=== PATIENT | male | born 1955 | race Caucasian/White ===

== ENCOUNTER 2020-12-20 09:28 | Outpatient (RCR) | payer OTHER, SELFPAY | END 2020-12-20 23:59 | LOC: IMMUN 09:28 | PROVIDERS: PCP Internal Medicine; Referring Provider Family Medicine; Visit Provider Family Medicine | DX: Z23 Encounter for immunization (principal) | CPT/HCPCS: 0011A; 0012A ==

== ENCOUNTER 2024-01-27 17:59 | Emergency (ER) | payer MEDICARE, SELFPAY ==
[2024-01-27 18:00] VITALS: BP 145/76; PULSE 96; RESP 18; TEMP 36.8; O2SAT 98
--- NOTE | 2024-01-27 18:48 | EX.ED.DYSGE1 ---
HPI History of Present Illness Chief Complaint: Palpitations Informant: patient Onset/Context/Timing Onset: Weeks (1-2) Context: Gradual Onset Timing: Intermittent and Lasts (Approximately 1 hour) Quality: Fluttering Location: Chest Worsened by: In the morning when he wakes up Relieved by: Relaxing Narrative Narrative: Patient presents with palpitations that have been intermittent for the past 1 to 2 weeks. Patient states they come on gradually. Patient states that feels like there is a fluttering in his chest. Patient states it last for approximately an hour. Patient states it is worse in the morning. Patient states it is better when he is able to relax. Patient denies any shortness of breath. Patient denies any lightheadedness. Patient denies any pain in his chest. Patient denies any fevers or chills. PFSH PFSH Medical History (Updated 01/27/24 @ 21:[address] Deni Gardner DO) Anxiety Depression Hypercholesterolemia Surgical History (Updated 01/27/24 @ 19:[address] Deni Gardner DO) Hx of cataract surgery Hx of knee surgery Hx of shoulder surgery Social History (Updated 01/27/24 @ 19:[address] Deni Gardner DO) Smoking Status: Never smoker alcohol intake: current alcohol intake frequency: a few times a week substance use type: marijuana ROS ROS ED Constitutional Constitutional ED: Denies chills or fever(s) Eyes Eyes: Denies blurry vision or change in vision ENT ENT ED: Denies rhinorrhea or sore throat Cardiovascular Cardiovascular: Reports palpitations; Denies chest pain Respiratory/Chest Respiratory/Chest: Denies cough or dyspnea Gastrointestinal Gastrointestinal: Denies nausea or vomiting Genitourinary Genitourinary ED: Denies dysuria or hematuria Musculoskeletal Musculoskeletal: Reports back pain and neck pain Integumentary Denies abscess or rash Neurologic Neurologic: Denies headache(s) or weakness Allergic/Immunologic Allergic/Immunologic ED: Denies mouth swelling or urticaria EXAM Physical Exam Const Vital Signs: 01/27/24 18:00 01/27/24 18:24 01/27/24 20:00 Temperature 98.2 F Temperature Source Temporal Pulse Rate 96 80 Respiratory Rate 18 20 H Respiratory Effort Normal Non-Labored Blood Pressure 145/76 H 146/74 H Blood Pressure Mean 99 98 Pulse Ox 98 98 Oxygen Delivery Method Room Air Room Air Positive well nourished and well developed General Appearance ED: well developed and NAD HEENT Reports moist mucous membranes Neck supple and no JVD Chest Wall inspection of chest normal and palpation of chest normal Resp normal respiratory effort and clear to auscultation bilaterally Cardio regular rate Rhythm: abnormal rhythm ectopic beats GI non-tender and non-distended Palpation: soft Extremity normal to inspection General Extremety ED: Negative for edema or tenderness General Extremity: Negative for edema Neuro oriented x3, CN's II-XII intact bilaterally and no sensory deficits noted Sensorium / Orientation: alert Motor Exam: strength 5/5 throughout MDM MDM MDM Narrative Medical decision making narrative: Differential diagnosis included electrolyte abnormality, dehydration, cardiac dysrhythmia, cardiac ischemia, pneumonia, and anxiety. EKG will be obtained to assess for cardiac dysrhythmia and cardiac ischemia. Chest x-ray will be obtained to assess for pneumonia. CBC will be obtained to assess for leukocytosis and anemia. Basic metabolic profile will be obtained to assess for electrolyte abnormality and renal function. High-sensitivity troponin will be obtained to assess for cardiac ischemia. Lab Data Attestation: I reviewed the patient's lab results. Lab results narrative: CBC was reviewed and was within normal limits. Basic metabolic profile was reviewed and was within normal limits. High-sensitivity troponin was reviewed and was normal at 8. Labs: Laboratory Results - last 24 hr 01/27/24 18:58 WBC 6.8 RBC 4.58 L Hgb 14.0 Hct 40.4 MCV 88.2 MCH 30.6 MCHC 34.7 RDW Std Deviation 42.5 RDW Coeff of Larissa 13.2 Plt Count 181 MPV 9.6 Immature Gran % (Auto) 0.300 Neut % (Auto) 70.0 Lymph % (Auto) 18.6 L Garrett % (Auto) 8.2 Eos % (Auto) 1.9 Baso % (Auto) 1.0 Absolute Neuts (auto) 4.8 Absolute Lymphs (auto) 1.27 Nucleated RBC % 0 Sodium 141 Potassium 4.0 Chloride 112 H Carbon Dioxide 24.0 Anion Gap 5 BUN 15 Creatinine 0.90 Estim Creat Clear Calc 107.00 Est GFR (MDRD) Af Amer 109 Est GFR (MDRD) Non-Af 90 BUN/Creatinine Ratio 16.7 Glucose 98 Calcium 8.7 Troponin I High Sens 8 Radiography Chest X-Ray - ED: 2 View, Read by ED Physician, Read by Radiologist and No Acute Disease Diagnostic Testing: Clinical Impression(s) from Imaging Studies Chest X-Ray 01/27/24 19:05 IMPRESSION: No acute cardiopulmonary pathology Electronically Signed: Jacob Mcwilliams MD at 19:37 EDT , PA and lateral chest x-ray was obtained. There are 2 views. On my independent interpretation, lung vega are clear. There is normal cardiac silhouette. Bony thorax is normal. There is no acute process noted. Radiologist also interpreted the x-ray and agrees. EKG Initial EKG: Attestation: I personally reviewed and interpreted this EKG as follows: Interpretation: Sinus Rhythm (With frequent PVCs with a rate of 85) and No Acute Injury Pattern Comments: EKG was obtained. On my independent interpretation, it showed a normal sinus rhythm with frequent PVCs with a rate of 85. [place] interval, QRS interval, and QTc intervals were all normal. [place] was normal. There are no acute ST or T wave changes. Prior EKG tracings: not available for review Prior: No Prior Treatment and Re-Evaluation :: Patient was advised of his findings. Patient was instructed to drink plenty of fluids. Patient to follow-up with his primary care physician in 5 to 7 days. Patient understood and was agreeable with the plan. All questions were answered. Discharge Plan Triage Chief Complaint: Palpitations ED Provider: Deni Gardner Dx/Rx/DC Orders Clinical Impression: Palpitations, PVCs (premature ventricular contractions) Instructions: PVCs, ED Palpitations Primary Care Provider: Dimitri Simental Referrals: Dimitri Simental MD [Primary Care Provider] - 3-5 Days Disposition Disposition: Home, Self Care
--- NOTE | 2024-01-27 18:49 | EKG12_ITS ---
Test Reason : PALPATATIONS Blood Pressure : / mmHG Vent. Rate : 085 BPM Atrial Rate : 085 BPM P-R Int : 164 ms QRS Dur : 094 ms QT Int : 368 ms P-R-T Axes : 064 -04 047 degrees QTc Int : 437 ms Sinus rhythm with frequent Premature ventricular complexes Otherwise normal ECG Confirmed by TRACI HAWKINS, ABIGAIL ([id number]), book or script editor STUART SHEPPARD ([id number]) on 01/29/2024 9:08:35 AM Referred By: Confirmed By:ABIGAIL AVILES MD
--- NOTE | 2024-01-27 19:05 | RAD_ITS ---
STUDY: X-RAY CHEST REASON FOR EXAM: Male, 68 years old. Palpitations TECHNIQUE: PA and lateral COMPARISON: None. FINDINGS: The lungs are clear and expanded. There is no demonstrated pleural abnormality. Normal size heart. Normal mediastinum. Tiny left perihilar calcified nodes. Normal visualized pulmonary arteries. Normal visualized aortic arch and descending thoracic aorta. Normal visualized thoracic spine. Normal visualized ribs, clavicles, and shoulders. There is no demonstrated abnormality of the visualized soft tissue structures of the upper abdomen. RAD/Chest PA and Lateral IMPRESSION: No acute cardiopulmonary pathology Electronically Signed: Jacob Mcwilliams MD at 19:37 EDT Reading Location ID and State: [facility] [place] [facility] Tel , Service support ,
[2024-01-27 19:09] LABS: Absolute Lymphocyte Count 1.27 X10^3/uL (0.83-4.51); Absolute Neutrophil Count 4.8 X10^3/uL (2.0-7.7); Basophil# 0.07 X10^3/uL; Eosinophil# 0.13 X10^3/uL; Eosinophils% 1.9 % (0-5); Hematocrit 40.4 % (40-54); Lymphocyte # 1.27 X10^3/ul (0.83-4.51); Lymphocyte % 18.6 % (19-41); Mean Corp Hgb Conc 34.7 g/dL (32-36); Mean Corpuscular Hgb 30.6 pg (27.0-32.0); Mean Corpuscular Volume 88.2 fL (80-94); Mean Platelet Vol. 9.6 fl (6.2-12.0); Monocyte# 0.56 X10^3/uL; Monocyte% 8.2 % (0-10); NRBC Flagged by Analyzer 0 % (0-5); Neutrophil # 4.78 X10^3/uL (2.7-7.7); Platelet Count 181 K/mm3 (150-450); RBC Distribution Width CV 13.2 % (11.6-14.6); RBC Distribution Width SD 42.5 fl (35.1-43.9); Red Blood Count 4.58 M/mm3 (4.6-6.2); White Blood Count 6.8 K/mm3 (4.4-11.0)
[2024-01-27 19:17] VITALS: BMI 24.3
[2024-01-27] MEDS: 0.9% Normal Saline (1000mL) 1,000 ML 1000 ML IV (19:18)
[2024-01-27 19:27] LABS: Anion Gap 5 (5-15); BUN 15 mg/dL (7-18); BUN/Creat Ratio 16.7 RATIO (10-20); Calcium,Total 8.7 mg/dL (8.5-10.1); Chloride 112 mmol/L (98-107); EST Glomerular Filtration Rate 90 mL/min (>60); Est Glom Filt Rate - Afr Amer 109 mL/min (>60); Glucose 98 mg/dL (74-106); Sodium Level 141 mmol/L (136-145); Troponin-I HS 8 pg/mL (3.0-78.0)
[2024-01-27 20:00] VITALS: BP 146/74; PULSE 80; RESP 20; O2SAT 98
[2024-01-27 21:31] VITALS: BP 148/78; PULSE 76; RESP 14; TEMP 36.6; O2SAT 97
== END 2024-01-27 21:32 | disposition home or self-care (01) ==
PROVIDERS: Emergency Provider Emergency Medicine; PCP Internal Medicine; Visit Provider Emergency Medicine
DX: I49.3 Ventricular premature depolarization (principal)
CPT/HCPCS: 71046; 80048; 84484; 85025; 93005; 96360; 99283; J7030